=== PATIENT | male | born 1975 | race African-American/Black ===

== ENCOUNTER 2024-05-16 18:52 | Emergency (ER) | payer SELFPAY ==
[~2024-05-16] VITALS: Ht 182.9 cm; Wt 84.0 kg
[2024-05-16 19:03] VITALS: TEMP 98.7; O2SAT 99
[2024-05-16 22:55] VITALS: BP 132/78; PULSE 96; RESP 12
[2024-05-16] MEDS: HYDROCODONE/ACETAMINOPHEN 5/325MG TABLET PO ONE (22:55)
[2024-05-17] MEDS ORDERED: IBUP-2029 MT (22:18)
== END 2024-05-17 02:45 | disposition home or self-care (01) ==
LOC: ER 18:52
DX: S62.324A Displaced fracture of shaft of fourth metacarpal bone, right hand, initial encounter for closed fracture (principal); M79.672 Pain in left foot; M79.671 Pain in right foot; Y08.89XA Assault by other specified means, initial encounter; Y93.89 Activity, other specified; Y92.89 Other specified places as the place of occurrence of the external cause; Y99.8 Other external cause status
CPT/HCPCS: 29125; 73130; 73630; 99284

== ENCOUNTER 2024-05-17 04:21 | Emergency (ER) | payer SELFPAY ==
[~2024-05-17] VITALS: Ht 188 cm; Wt 82.0 kg
[2024-05-17 04:29] VITALS: O2SAT 100
[2024-05-17 06:04] LABS: BASOPHILS % 0.6 % (0.0-2.0); EOSINOPHILS % 2.9 % (0.0-5.0); HEMATOCRIT. 33.3 % (42.0-52.0); HEMOGLOBIN. 11.1 g/dL (14.0-18.0); LYMPHOCYTES % 21.6 % (20.0-50.0); MEAN CORPUSCULAR HEMOGLOBIN 30.6 pg (28.0-32.0); MEAN CORPUSCULAR HGB CONC 33.4 g/dL (31.0-37.0); MEAN CORPUSCULAR VOLUME 91.5 fL (80.0-94.0); MEAN PLATELET VOLUME 6.7 fl (7.4-10.4); MONOCYTES % 9.1 % (2.0-8.0); NEUTROPHILS % 65.8 % (40.0-76.0); PLATELET 428 x1000/uL (130-400); RED BLOOD CELL COUNT 3.64 mill/uL (4.7-6.1); RED CELL DISTRIBUTION WIDTH 15.4 % (11.6-14.6); WHITE BLOOD COUNT 6.8 x1000/uL (4.5-11.0)
[2024-05-17] MEDS: OLANZAPINE 5MG TABLET PO STA (06:30)
[2024-05-17 06:35] LABS: CHLORIDE 105 mEq/L (98-107); POTASSIUM 3.5 mEq/L (3.5-5.1); SODIUM 136 mEq/L (136-145)
[2024-05-17 06:36] LABS: CARBON DIOXIDE 24 mEq/L (21-32)
[2024-05-17 06:37] LABS: CALCIUM 8.6 mg/dL (8.7-10.4)
[2024-05-17 06:41] LABS: CREATININE 0.6 mg/dL (0.6-1.3); GLUCOSE 98 mg/dL (70-105)
[2024-05-17 06:42] LABS: UREA NITROGEN BLOOD 7 mg/dL (9-23)
[2024-05-17 06:56] LABS: ETHANOL BLOOD < 10 mg/dL (<10)
[2024-05-17 08:00] LABS: CLARITY URINE CLOUDY (CLEAR); COLOR URINE DARK YELLOW (YELLOW); GLUCOSE URINE NEGATIVE (NEGATIVE); KETONES URINE TRACE (NEGATIVE); LEUKOCYTE ESTERASE URINE NEGATIVE (NEGATIVE); NITRITE URINE NEGATIVE (NEGATIVE); OCCULT BLOOD URINE NEGATIVE (NEGATIVE); PH URINE 5.5 (4.5-8.0); PROTEIN URINE TRACE (NEGATIVE); SPECIFIC GRAVITY URINE 1.031 (1.005-1.030)
[2024-05-17 08:15] LABS: RBC URINE NONE SEEN /hpf (0-2)
[2024-05-17 08:16] LABS: *AMPHETAMINES SCREEN URINE PRESUMPTIVE POSITIVE (NEGATIVE); *BARBITURATES SCREEN URINE NEGATIVE (NEGATIVE); *BENZODIAZEPINES SCREEN URINE PRESUMPTIVE POSITIVE (NEGATIVE); *COCAINE SCREEN URINE NEGATIVE (NEGATIVE); BACTERIA URINE 1+; CALCIUM OXALATE CRYSTALS URINE 1+ /lpf; MUCUS URINE 4+ /lpf (NONE/TRACE); SQUAMOUS EPITHELIAL CELL URINE FEW /lpf (RARE/1+); YEAST URINE NONE SEEN
[2024-05-17 08:17] LABS: CANNABINOID URINE SCREEN NEGATIVE (NEGATIVE); ECSTASY MDMA SCREEN URINE CONF.TEST INDICATED (NEGATIVE); METHADONE URINE SCREEN NEGATIVE (NEGATIVE); OPIATES URINE SCREEN PRESUMPTIVE POSITIVE (NEGATIVE); PHENCYCLIDINE URINE SCREEN NEGATIVE (NEGATIVE)
[2024-05-17 13:39] VITALS: BP 128/84; PULSE 82; RESP 18; TEMP 36.66960; O2SAT 100
[2024-05-17] MEDS ORDERED: IBUP-2029 MT (22:18)
== END 2024-05-17 13:40 | disposition home or self-care (01) ==
LOC: ER 04:21
DX: R44.0 Auditory hallucinations (principal); Z20.822 Contact with and (suspected) exposure to COVID-19
CPT/HCPCS: 80305; 80048; 81003; 80320; 85025; 36415; 99283; 87426; Z7610; G0480

== ENCOUNTER 2024-05-17 19:33 | Emergency (ER) | payer SELFPAY ==
[~2024-05-17] VITALS: Ht 188 cm; Wt 82.5 kg
[2024-05-17 19:39] VITALS: O2SAT 100
[2024-05-17] MEDS: IBUPROFEN 600MG TABLET PO ONE (21:38)
[2024-05-17] MEDS ORDERED: IBUP-2029 MT (22:18)
[2024-05-17 22:53] VITALS: BP 121/73; PULSE 92; RESP 20; TEMP 98
== END 2024-05-17 22:55 | disposition home or self-care (01) ==
LOC: ER 19:33
DX: R07.89 Other chest pain (principal); F15.10 Other stimulant abuse, uncomplicated
CPT/HCPCS: 93005; 99283